=== PATIENT | female | born 1945 | race Caucasian/White ===

== ENCOUNTER 2017-09-16 12:05 | Inpatient (IN) ==
[2017-09-16 14:28] LABS: Basophils # 0.1 10*3/uL (0.0-0.2); Basophils % 0.2 % (0.0-0.8); Hematocrit 32.6 VOL% (35.7-47.0); Hemoglobin 10.3 GM/DL (12.0-16.0); Immature Granulocytes % 1.1 %; Immature Granulocytes Absolute 0.29 #; Lymphocytes # 1.2 10*3/uL (1.4-4.0); Lymphocytes % 4.6 % (21.3-54.2); Mean Corpuscular HGB Conc 31.6 GM/DL (32-36); Mean Corpuscular Hemoglobin 31 PG (27-34); Mean Corpuscular Volume 97.3 FL (87-102); Mean Platelet Volume 9.2 FL (9.6-12.0); Monocytes % 7.7 % (1.7-12.7); Neutrophils # 22.5 10*3/uL (1.4-7.4); Neutrophils % 86.4 % (38.7-73.9); Platelet Count 649 T/CUMM (130-400); Red Blood Count 3.35 MC/CUMM (3.8-5.5); Red Cell Distribution Width 13.6 % (9.3-17.3)
[2017-09-16 14:35] LABS: Apearance,Urine Slightly Hazy (Clear); Bilirubin,Urine Negative (Negative); Blood, Urine Small mg/dL (Negative); Glucose,Urine (UA) Negative (Negative); Hyaline Casts,Urine 13 /LPF (0-3); Ketones,Urine Negative (Negative); Mucus,Urine Occasional /LPF (Occasional); Nitrite,Urine Negative (Negative); Protein,Urine 30 MG/DL; RBC,Urine 2 /HPF (0-4); Squamous Epithelial Cell,Urine Occasional /HPF (0-10); Urine Color Amber (Yellow); Urine Specific Gravity 1.026 (1.001-1.035); Urine Urobilinogen < 2.0 EU/DL (0.2-1.0); WBC,Urine 2 /HPF (0-6)
[2017-09-16 14:53] LABS: Lymphocytes 7 % (20-55); Platelet Estimate Increased; Segmented Neutrophils 89 % (50-85); Total Cells Counted 100
[2017-09-16 14:54] LABS: Stomatocytes Slight
[2017-09-16 15:14] LABS: Albumin 2.4 G/DL (3.4-5.0); Bilirubin,Total 0.4 MG/DL (0.2-1.0); Calcium 8.8 MG/DL (8.5-10.1); Osmolality,Calculated 277.8 MOS/KG (273-304); Potassium 3.9 MMOL/L (3.5-5.1)
[2017-09-16 15:38] LABS: Total Protein 6.5 G/DL (6.4-8.3)
[2017-09-16] MEDS ORDERED: cefTRIAXone 1,000 MG in SODIUM CHLORIDE 0.9% 100 ML IV STA (15:45)
[2017-09-16] MEDS ORDERED: cefTRIAXone 1,000 MG VIAL ONE (15:52)
[2017-09-16] MEDS ORDERED: ALBUTEROL/IPRATROPIUM 3 ML NEB RESP TX PRN (16:11)
[2017-09-16] MEDS ORDERED: IBUPROFEN 600 MG TABLET PO PRN (19:12)
[2017-09-16] MEDS ORDERED: FUROSEMIDE 20 MG TABLET PO PRN (19:23)
[2017-09-16] MEDS: ACETAMINOPHEN 325 MG TABLET PO PRN (19:58)
[2017-09-16] MEDS ORDERED: AZITHROMYCIN INJ 500 MG in SODIUM CHLORIDE 0.9% 250 ML IV SCH (21:00)
[2017-09-16] MEDS: ZALEPLON 5 MG CAPSULE PO PRN (21:06)
[2017-09-16] MEDS: BENZONATATE 100 MG CAPSULE PO SCH (21:06)
[2017-09-16] MEDS: busPIRone 15 MG TABLET PO SCH (21:07)
[2017-09-16] MEDS: rOPINIRole 4 MG TABLET PO SCH (21:07)
[2017-09-16] MEDS: SODIUM CHLORIDE 0.45% 1,000 ML IV SCH (21:09)
[2017-09-17] MEDS: ACETAMINOPHEN 325 MG TABLET PO PRN (06:54)
[2017-09-17 08:02] LABS: Basophils % 0.2 % (0.0-0.8); Eosinophils % 0.2 % (0.00-10.9); Hematocrit 26.9 VOL% (35.7-47.0); Hemoglobin 9.1 GM/DL (12.0-16.0); Immature Granulocytes % 0.8 %; Immature Granulocytes Absolute 0.14 #; Lymphocytes # 1.1 10*3/uL (1.4-4.0); Mean Corpuscular HGB Conc 33.8 GM/DL (32-36); Mean Corpuscular Hemoglobin 31 PG (27-34); Mean Corpuscular Volume 91.8 FL (87-102); Mean Platelet Volume 9.6 FL (9.6-12.0); Monocytes # 1.6 10*3/uL (0.11-0.8); Monocytes % 8.7 % (1.7-12.7); Neutrophils # 15.5 10*3/uL (1.4-7.4); Neutrophils % 84.1 % (38.7-73.9); Platelet Count 560 T/CUMM (130-400); Red Blood Count 2.93 MC/CUMM (3.8-5.5); Red Cell Distribution Width 13.5 % (9.3-17.3); White Blood Count 18.4 T/CUMM (4-12)
[2017-09-17 08:41] LABS: Calcium 8.2 MG/DL (8.5-10.1)
[2017-09-17 08:42] LABS: Osmolality,Calculated 272.7 MOS/KG (273-304); Potassium 3.7 MMOL/L (3.5-5.1)
[2017-09-17] MEDS: ONDANSETRON 4 MG/2 ML VIAL IV PRN (09:29)
[2017-09-17] MEDS: busPIRone 15 MG TABLET PO SCH ×3 (09:32→21:14)
[2017-09-17] MEDS: oxyCODONE/ACETAMINOPHEN 5-325 MG TABLET PO PRN ×3 (09:32→17:46)
[2017-09-17] MEDS: BENZONATATE 100 MG CAPSULE PO SCH ×3 (09:32→21:14)
[2017-09-17] MEDS: PANTOPRAZOLE 40 MG TABLET PO SCH (14:39)
[2017-09-17] MEDS: FAMOTIDINE 20 MG TABLET PO SCH ×2 (14:39→17:37)
[2017-09-17] MEDS: cefTRIAXone 1,000 MG in SYRINGE 1 EACH IV SCH (17:38)
[2017-09-17] MEDS: CITALOPRAM 20 MG TABLET PO SCH (21:14)
[2017-09-17] MEDS: ZALEPLON 5 MG CAPSULE PO PRN (21:14)
[2017-09-17] MEDS: rOPINIRole 4 MG TABLET PO SCH (21:16)
[2017-09-17] MEDS: AZITHROMYCIN INJ 500 MG in SODIUM CHLORIDE 0.9% 250 ML IV SCH (21:18)
[2017-09-18] MEDS: SODIUM CHLORIDE 0.45% 1,000 ML IV SCH ×4 (01:10→21:39)
[2017-09-18] MEDS: traMADol 50 MG TABLET PO PRN (04:01)
[2017-09-18 05:31] LABS: Basophils % 0.2 % (0.0-0.8); Eosinophils % 0.2 % (0.00-10.9); Hematocrit 28.8 VOL% (35.7-47.0); Hemoglobin 9.3 GM/DL (12.0-16.0); Immature Granulocytes % 0.7 %; Immature Granulocytes Absolute 0.12 #; Lymphocytes # 1.1 10*3/uL (1.4-4.0); Lymphocytes % 6.5 % (21.3-54.2); Mean Corpuscular HGB Conc 32.3 GM/DL (32-36); Mean Corpuscular Hemoglobin 30 PG (27-34); Mean Corpuscular Volume 93.8 FL (87-102); Mean Platelet Volume 9.8 FL (9.6-12.0); Monocytes # 1.3 10*3/uL (0.11-0.8); Monocytes % 7.3 % (1.7-12.7); Neutrophils # 14.7 10*3/uL (1.4-7.4); Neutrophils % 85.1 % (38.7-73.9); Platelet Count 620 T/CUMM (130-400); Red Blood Count 3.07 MC/CUMM (3.8-5.5); Red Cell Distribution Width 13.7 % (9.3-17.3); White Blood Count 17.3 T/CUMM (4-12)
[2017-09-18 05:56] LABS: Calcium 8.1 MG/DL (8.5-10.1)
[2017-09-18 05:57] LABS: Osmolality,Calculated 275.4 MOS/KG (273-304); Potassium 4.1 MMOL/L (3.5-5.1)
[2017-09-18] MEDS: FAMOTIDINE 20 MG TABLET PO SCH ×3 (08:09→17:05)
[2017-09-18] MEDS: busPIRone 15 MG TABLET PO SCH ×3 (08:09→20:37)
[2017-09-18] MEDS: oxyCODONE/ACETAMINOPHEN 5-325 MG TABLET PO PRN ×2 (08:09→22:32)
[2017-09-18] MEDS: BENZONATATE 100 MG CAPSULE PO SCH ×3 (08:10→20:37)
[2017-09-18] MEDS: PANTOPRAZOLE 40 MG TABLET PO SCH (08:10)
[2017-09-18] MEDS: ONDANSETRON 4 MG/2 ML VIAL IV PRN (17:03)
[2017-09-18] MEDS: cefTRIAXone 1,000 MG in SYRINGE 1 EACH IV SCH (17:04)
[2017-09-18] MEDS: rOPINIRole 4 MG TABLET PO SCH (20:37)
[2017-09-18] MEDS: CITALOPRAM 20 MG TABLET PO SCH (20:37)
[2017-09-18] MEDS: ZALEPLON 5 MG CAPSULE PO PRN (20:38)
[2017-09-18] MEDS: AZITHROMYCIN INJ 500 MG in SODIUM CHLORIDE 0.9% 250 ML IV SCH (20:39)
[2017-09-18] MEDS ORDERED: AZITHROMYCIN 250 MG TABLET PO SCH (21:00)
[2017-09-19] MEDS: ONDANSETRON 4 MG/2 ML VIAL IV PRN (00:02)
[2017-09-19 04:59] LABS: Basophils % 0.3 % (0.0-0.8); Eosinophils # 0.1 10*3/uL (0.0-0.87); Eosinophils % 0.8 % (0.00-10.9); Hematocrit 27.6 VOL% (35.7-47.0); Hemoglobin 8.9 GM/DL (12.0-16.0); Immature Granulocytes % 0.8 %; Immature Granulocytes Absolute 0.09 #; Lymphocytes # 1.2 10*3/uL (1.4-4.0); Lymphocytes % 10.1 % (21.3-54.2); Mean Corpuscular HGB Conc 32.2 GM/DL (32-36); Mean Corpuscular Hemoglobin 31 PG (27-34); Mean Corpuscular Volume 95.2 FL (87-102); Mean Platelet Volume 9.2 FL (9.6-12.0); Monocytes # 0.9 10*3/uL (0.11-0.8); Monocytes % 7.6 % (1.7-12.7); Neutrophils # 9.5 10*3/uL (1.4-7.4); Neutrophils % 80.4 % (38.7-73.9); Platelet Count 670 T/CUMM (130-400); Red Cell Distribution Width 13.4 % (9.3-17.3); White Blood Count 11.8 T/CUMM (4-12)
[2017-09-19 06:13] LABS: Calcium 8.2 MG/DL (8.5-10.1); Osmolality,Calculated 276.4 MOS/KG (273-304); Potassium 3.6 MMOL/L (3.5-5.1)
[2017-09-19] MEDS: oxyCODONE/ACETAMINOPHEN 5-325 MG TABLET PO PRN ×2 (07:54→20:44)
[2017-09-19 08:32] LABS: PT Patient Result 10.7 SECS; Partial Thromboplastin Time 38.3 SECS (0-40)
[2017-09-19] MEDS: PANTOPRAZOLE 40 MG TABLET PO SCH (08:50)
[2017-09-19] MEDS: BENZONATATE 100 MG CAPSULE PO SCH ×3 (08:50→20:45)
[2017-09-19] MEDS: busPIRone 15 MG TABLET PO SCH ×3 (08:50→20:45)
[2017-09-19] MEDS: FAMOTIDINE 20 MG TABLET PO SCH ×3 (08:50→17:57)
[2017-09-19] MEDS: AZITHROMYCIN INJ 500 MG in SODIUM CHLORIDE 0.9% 250 ML IV SCH (20:40)
[2017-09-19] MEDS: CITALOPRAM 20 MG TABLET PO SCH (20:43)
[2017-09-19] MEDS: ZALEPLON 5 MG CAPSULE PO PRN (20:44)
[2017-09-19] MEDS: rOPINIRole 4 MG TABLET PO SCH (20:45)
[2017-09-19] MEDS: cefTRIAXone 1,000 MG in SYRINGE 1 EACH IV SCH (20:46)
[2017-09-20] MEDS: SODIUM CHLORIDE 0.45% 1,000 ML IV SCH ×2 (01:35→20:07)
[2017-09-20] MEDS: oxyCODONE/ACETAMINOPHEN 5-325 MG TABLET PO PRN ×4 (03:48→21:17)
[2017-09-20 05:02] LABS: Basophils % 0.4 % (0.0-0.8); Eosinophils # 0.1 10*3/uL (0.0-0.87); Eosinophils % 0.8 % (0.00-10.9); Hemoglobin 8.5 GM/DL (12.0-16.0); Immature Granulocytes % 0.7 %; Immature Granulocytes Absolute 0.07 #; Lymphocytes # 1.1 10*3/uL (1.4-4.0); Lymphocytes % 11.2 % (21.3-54.2); Mean Corpuscular HGB Conc 32.7 GM/DL (32-36); Mean Corpuscular Hemoglobin 31 PG (27-34); Mean Corpuscular Volume 94.9 FL (87-102); Monocytes # 0.8 10*3/uL (0.11-0.8); Monocytes % 7.8 % (1.7-12.7); Neutrophils % 79.1 % (38.7-73.9); Platelet Count 631 T/CUMM (130-400); Red Blood Count 2.74 MC/CUMM (3.8-5.5); Red Cell Distribution Width 13.8 % (9.3-17.3); White Blood Count 10.1 T/CUMM (4-12)
[2017-09-20 05:37] LABS: Risk Ratio 4.24; Thyroid Stimulating Hormone 0.658 uIU/ml (0.358-3.74); VLDL CHOLESTEROL 22.2 MG/DL
[2017-09-20] MEDS: ACETAMINOPHEN 325 MG TABLET PO PRN (05:47)
[2017-09-20] MEDS ORDERED: PROMETHAZINE 25 MG/1 ML VIAL IM ONE (07:00)
[2017-09-20] MEDS ORDERED: MIDAZOLAM 2 MG/2 ML VIAL ONE (07:03)
[2017-09-20] MEDS ORDERED: MIDAZOLAM 2 MG/2 ML VIAL IV ONE (07:30)
[2017-09-20] MEDS ORDERED: LIDOCAINE 2% 20 ML VIAL RESP TX ONE (07:30)
[2017-09-20] MEDS ORDERED: LIDOCAINE 1% 20 ML VIAL MISC INJ ONE (07:30)
[2017-09-20] MEDS: BENZONATATE 100 MG CAPSULE PO SCH ×3 (09:51→21:18)
[2017-09-20] MEDS: PANTOPRAZOLE 40 MG TABLET PO SCH (09:51)
[2017-09-20] MEDS: FAMOTIDINE 20 MG TABLET PO SCH ×3 (09:51→17:57)
[2017-09-20] MEDS: MAGNESIUM CHLORIDE 64 MG TABLET PO SCH ×2 (09:51→21:18)
[2017-09-20] MEDS: busPIRone 15 MG TABLET PO SCH ×3 (09:53→21:18)
[2017-09-20] MEDS: cefTRIAXone 1,000 MG in SYRINGE 1 EACH IV SCH (21:11)
[2017-09-20] MEDS: rOPINIRole 4 MG TABLET PO SCH (21:18)
[2017-09-20] MEDS: CITALOPRAM 20 MG TABLET PO SCH (21:18)
[2017-09-20] MEDS: ZALEPLON 5 MG CAPSULE PO PRN (21:18)
[2017-09-20] MEDS: AZITHROMYCIN INJ 500 MG in SODIUM CHLORIDE 0.9% 250 ML IV SCH (21:49)
[2017-09-21] MEDS: traMADol 50 MG TABLET PO PRN ×2 (01:57→15:30)
[2017-09-21 06:17] LABS: Basophils % 0.3 % (0.0-0.8); Eosinophils # 0.1 10*3/uL (0.0-0.87); Eosinophils % 0.9 % (0.00-10.9); Hematocrit 26.1 VOL% (35.7-47.0); Hemoglobin 8.6 GM/DL (12.0-16.0); Immature Granulocytes % 0.7 %; Immature Granulocytes Absolute 0.07 #; Lymphocytes # 1.5 10*3/uL (1.4-4.0); Lymphocytes % 15.7 % (21.3-54.2); Mean Corpuscular Hemoglobin 31 PG (27-34); Mean Corpuscular Volume 93.2 FL (87-102); Mean Platelet Volume 9.2 FL (9.6-12.0); Monocytes # 0.8 10*3/uL (0.11-0.8); Monocytes % 7.6 % (1.7-12.7); Neutrophils # 7.3 10*3/uL (1.4-7.4); Neutrophils % 74.8 % (38.7-73.9); Platelet Count 776 T/CUMM (130-400); White Blood Count 9.8 T/CUMM (4-12)
[2017-09-21 06:55] LABS: Calcium 8.3 MG/DL (8.5-10.1); Potassium 3.7 MMOL/L (3.5-5.1)
[2017-09-21] MEDS: PANTOPRAZOLE 40 MG TABLET PO SCH (09:18)
[2017-09-21] MEDS: busPIRone 15 MG TABLET PO SCH ×3 (09:18→22:17)
[2017-09-21] MEDS: BENZONATATE 100 MG CAPSULE PO SCH ×3 (09:18→22:18)
[2017-09-21] MEDS: MAGNESIUM CHLORIDE 64 MG TABLET PO SCH ×2 (09:18→22:18)
[2017-09-21] MEDS: FAMOTIDINE 20 MG TABLET PO SCH ×3 (09:18→17:35)
[2017-09-21] MEDS: SODIUM CHLORIDE 0.45% 1,000 ML IV SCH ×2 (12:02→17:36)
[2017-09-21] MEDS: DOXYCYCLINE HYCLATE 100 MG CAPSULE PO SCH (17:35)
[2017-09-21] MEDS ORDERED: ZALEPLON 5 MG CAPSULE PO SCH (21:00)
[2017-09-21] MEDS: rOPINIRole 4 MG TABLET PO SCH (22:18)
[2017-09-21] MEDS: CITALOPRAM 20 MG TABLET PO SCH (22:18)
[2017-09-21] MEDS: cefTRIAXone 1,000 MG in SYRINGE 1 EACH IV SCH (22:19)
[2017-09-22] MEDS: traMADol 50 MG TABLET PO PRN ×2 (05:35→13:11)
[2017-09-22] MEDS: busPIRone 15 MG TABLET PO SCH (09:50)
[2017-09-22] MEDS: PANTOPRAZOLE 40 MG TABLET PO SCH (09:50)
[2017-09-22] MEDS: BENZONATATE 100 MG CAPSULE PO SCH (09:50)
[2017-09-22] MEDS: MAGNESIUM CHLORIDE 64 MG TABLET PO SCH (09:50)
[2017-09-22] MEDS: FAMOTIDINE 20 MG TABLET PO SCH (09:50)
[2017-09-22] MEDS: DOXYCYCLINE HYCLATE 100 MG CAPSULE PO SCH (09:50)
[2017-09-22 12:22] VITALS: BP 145/63
== END 2017-09-22 14:35 | disposition home or self-care (01) | DRG 178 ==
LOC: N.ED 12:05 → N.EDINP 16:14 → N.2E 18:18
PROVIDERS: ADMIT Family Medicine; ATTEND Family Medicine
PROC: BRONCHB (2017-09-20 07:20)